=== PATIENT | female | born 2000 | race Caucasian/White ===

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

== ENCOUNTER 2019-03-15 02:13 | Emergency (ER) | payer OTHER ==
[~2019-03-15 02:13] MED LIST: BENZ100C4 PO; MEDR150D IM
[2019-03-15] MEDS ORDERED: CHOL10005 PO (02:21)
[2019-03-15] MEDS ORDERED: CALC500T6 PO (02:21)
--- NOTE | 2019-03-15 02:22 | ER Report ---
History and Physical Time Seen By MD: 02:19 Hx. 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 HPI/ROS CHIEF COMPLAINT: Erythematous spot on the left ankle HISTORY OF PRESENT ILLNESS: Patient is a 18-year-old female here with several day history of an erythematous spot on her left ankle which seems to be more erythematous today prompting evaluation. Patient does not recall whether or not she had a insect bite or with the etiology of the rashes. Denies fevers or chills, nausea, vomiting. Patient is afebrile, hemodynamically stable at time of evaluation. REVIEW OF SYSTEMS: Constitutional: No fever, no chills. Musculoskeletal: No edema or bony abnormality Skin: Small 2 cm erythematous spot on left inner ankle Neurological: Neurovascular exam intact Allergies: Coded Allergies: sumatriptan (Verified Allergy, Intermediate, DYSPNEA, 10/18/17) Home Meds Active Scripts Doxycycline Hyclate (DOXYCYCLINE HYCLATE) 100 Mg Capsule, 100 MG PO BID for 7 Days, #14 CAPSULE Prov:TRE JONES DO 03/15/19 Reported Medications Calcium Carbonate (CALCIUM) 500 Mg Tablet, 500 MG PO QDAY 03/15/19 Cholecalciferol (Vitamin D3) (VITAMIN D3) 1,000 Unit Tablet, 1000 UNIT PO QDAY, TAB 03/15/19 Medroxyprogesterone Acet 150 Mg (DEPO-PROVERA 150 MG) 150 Mg/1 Ml Disp.syrin, 150 MG IM 10/18/17 Discontinued Scripts Benzonatate 100 Mg Cap (TESSALON PERLE 100 MG CAP) 100 Mg Capsule, 100 MG PO TID, #15 CAP Prov:YULIANA OSORIO MD 10/19/17 Hx Substance Use Disorder: No Hx Alcohol Use: No Constitutional Vital Sign - Last 24 Hours 03/15/19 03/15/19 03/15/19 03/15/19 02:17 02:28 02:30 02:43 Temp 98.9 Pulse 89 99 91 Resp 16 B/P (MAP) 139/86 127/78 (94) Pulse Ox 96 94 95 O2 Delivery Room Air Physical Exam General Appearance: The patient is alert, has no immediate need for airway protection and no signs of toxicity. No acute distress Neurological: Neurovascular exam intact Skin: Small erythematous 2 cm circular nonraised nonblanching lesion on the left inner ankle Musculoskeletal: Extremities are nontender, nonswollen and have full range of motion. DIFFERENTIAL DIAGNOSIS: After history and physical exam differential diagnosis was considered for insect bite, tick bite, cellulitis, erysipelas Medical Decision Making ED Course/Re-evaluation ED Course Patient is a 18-year-old female here with a several-day history of an erythematous circular lesion on the left inner ankle which is seemingly more erythematous today. Patient was afebrile, hemodynamically stable throughout course. Neurovascular exam intact. Patient was started on doxycycline 7 day course for treatment. Return precautions provided. Close PCP follow-up recommended Decision to Disposition Date: Mar 15, 2019 Decision to Disposition Time: 02:37 Depart Departure Latest Vital Signs Vital Signs Date Time Temp Pulse Resp B/P (MAP) Pulse Ox O2 Delivery O2 Flow Rate FiO2 03/15/19 02:43 91 95 03/15/19 02:30 127/78 (94) 03/15/19 02:17 98.9 16 Room Air Impression: Primary Impression: Cellulitis Condition: Improved Disposition: HOME OR SELF-CARE New Scripts Doxycycline Hyclate (DOXYCYCLINE HYCLATE) 100 Mg Capsule 100 MG PO BID for 7 Days, #14 CAPSULE Prov: TRE JONES DO 03/15/19 Patient Instructions: Cellulitis (DC) Additional Instructions: Please take doxycycline 1 tablet twice daily for 7 days for treatment of suspected skin infection. Please avoid direct sun exposure as this medication may cause photosensitivity. Please follow-up with your family doctor in the next 7 days for repeat evaluation. Please return promptly if you develop nausea, vomiting, fevers, inability keep down food or fluid, worsening rash. TRE JONES DO Mar 15, 2019 02:22
[2019-03-15 02:30] VITALS: BP 127/78
[2019-03-15] MEDS ORDERED: DOXYCYCLINE HYCL 100 MG TAB PO ONE (02:40)
[2019-03-15] MEDS ORDERED: DOXY-181 PO (02:41)
== END 2019-03-15 02:55 | disposition home or self-care (01) ==
LOC: ER 02:28
DX: L03.116 Cellulitis of left lower limb (principal)
CPT/HCPCS: 99283